=== PATIENT | male | born 1965 | race African-American/Black ===

== ENCOUNTER 2017-10-04 06:05 | Emergency (ER) | payer OTHER ==
[2017-10-04] MEDS ORDERED: KETOROLAC 30 MG/ML INJ ONE (06:20)
--- NOTE | 2017-10-04 07:49 | ER ---
Nurse's Notes [facility] Name: Alfonso Castañeda Age: 51 yrs Sex: Male : 1965 Arrival Date: 10/04/2017 Time: 06:06 Bed 18 Private MD: Diagnosis: Chest pain on breathing-rib pain Presentation: 10/04 06:07 Presenting complaint: Patient states: he was driving and sneezed really hard and then aa1 felt a pop in his L rib cage. Transition of care: patient was not received from another setting of care. Onset of symptoms was October 04, 2017. Care prior to arrival: None. 06:07 Method Of Arrival: EMS: [facility] aa1 06:07 Acuity: DAVID 4 aa1 Triage Assessment: 06:13 General: Appears in no apparent distress. comfortable, Behavior is calm, cooperative, aa1 appropriate for age. Pain: Complains of pain in diaphragm. Historical: - Allergies: 06:13 Biaxin; aa1 - Home Meds: 06:13 Prednisone Oral [Active]; aa1 - PMHx: 06:13 Cellulitis; retinal detachment; aa1 - PSHx: 06:13 eye sx; aa1 - Immunization history:: Flu vaccine is not up to date. - Social history:: Smoking status: Patient uses tobacco products, smokes one pack cigarettes per day. Screenin:01 Abuse screen: Denies threats or abuse. Nutritional screening: No deficits noted. ae1 Tuberculosis screening: No symptoms or risk factors identified. Fall Risk None identified. Assessment: 06:11 General: Appears uncomfortable, obese, Behavior is calm, cooperative, appropriate for cr4 age. Neuro: Denies weakness blurred vision dizziness, difficulty swallowing, numbness. Cardiovascular: Denies chest pain, lightheadedness, palpitations, shortness of breath, syncope, Capillary refill < 3 seconds Edema is 1+ to left midcalf, left ankle, left foot, right midcalf, right ankle and right foot Chest pain is denied. Respiratory: Reports pain with respiration since 30minutes. Breath sounds are clear bilaterally. Breath sounds are diminished bilaterally. Denies shortness of breath labored breathing. GI: No deficits noted. Patient currently denies nausea, pain, vomiting. : Denies burning with urination, incontinence, pain urinary frequency. EENT: Eyes hx of detached retina to right eye.. Derm: Skin is dry, skin pealing to pita hands. Musculoskeletal: Capillary refill < 3 seconds, Range of motion: intact in left arm. Tenderness present in left rib area. Reports pain in left rib cage are. 07:06 Reassessment: Patient appears in no apparent distress at this time. PO fluids provided. ae1 08:02 Reassessment: Patient appears in no apparent distress at this time. at bedside. ae1 Patient states feeling better. Vital Signs: 06:07 BP 135 / 98; Pulse 96; Resp 18; Temp 97.8; Pulse Ox 97% on R/A; Weight 140.61 kg; aa1 Height 6 ft. 7 in. (200.66 cm); Pain 8/10; 07:58 BP 141 / 86; Pulse 77; Resp 19; Pulse Ox 99% on R/A; ae1 06:07 Body Mass Index 34.92 (140.61 kg, 200.66 cm) aa1 ED Course: 06:06 Patient arrived in ED. kb 06:06 Esperanza Long FNP-C [facility]. kb 06:06 Alex Bonner MD is Attending Physician. kb 06:07 Arm band placed on right wrist. Patient placed in an exam room, on a stretcher. aa1 06:12 Triage completed. aa1 07:02 Paxton Fall, JOMAR is Primary Nurse. ae1 07:09 Awaiting for x-ray, Awaiting: X-ray tech called regarding pending CXR. cr4 07:31 X-ray completed. Patient tolerated procedure well. Patient moved to radiology via kw wheelchair. Patient moved back from radiology. 07:31 Chest Pa And Lat (2 Views) XRAY In Process Unspecified. EDMS 08:00 Bed in low position. Call light in reach. Side rails up X 1. Pulse ox on. NIBP on. ae1 08:01 No provider procedures requiring assistance completed. Patient did not have IV access ae1 during this emergency room visit. Administered Medications: 06:27 Drug: TORadol 60 mg Route: IM; Site: right deltoid; cr4 08:04 Follow up: Response: Pain is decreased ae1 Outcome: 07:49 Discharge ordered by . kb 08:01 Discharged to home ambulatory, with significant other. ae1 08:01 Condition: stable 08:01 Discharge instructions given to patient, significant other, Instructed on discharge instructions, follow up and referral plans. no drinking with medication, no driving heavy equipment, medication usage, Demonstrated understanding of instructions, follow-up care, medications, Prescriptions given X 1. 08:04 Patient left the ED. ae1 Signatures: Dispatcher [employer] EDHI Esperanza Long, EMERSON-C EMERSON-Malaika Hemphill RN RN aa1 Sophia Nieves RN RN cr4 Alem Garcia Andrea, RN RN ae1
--- NOTE | 2017-10-04 07:50 | EDPHYS ---
Physician Documentation [facility] Name: Alfonso Castañeda Age: 51 yrs Sex: Male : 1965 Arrival Date: 10/04/2017 Time: 06:06 Bed 18 Private MD: ED Physician Alex Bonner HPI: 10/04 06:07 This 51 yrs old Black Male presents to ER via Unassigned with complaints of rib pain. kb 06:07 The patient or guardian reports chest pain that is located primarily in the left, lower kb anterior ribs. Onset: just prior to arrival. The pain does not radiate. Associated signs and symptoms: The patient has no apparent associated signs or symptoms. The chest pain is described as sharp. Duration: The patient or guardian reports a single episode, that is still ongoing. Modifying factors: The symptoms are alleviated by nothing. the symptoms are aggravated by deep breath, movement, palpation of area. Severity of pain: At its worst the pain was moderate in the emergency department the pain is unchanged. The patient has not experienced similar symptoms in the past. The patient has not recently seen a physician. Pt states he sneezed really hard and felt a pop to left lower ribs. Tried to finish driving to work after, but the pain was worse when he tried to turn the wheel. . Historical: - Allergies: 06:13 Biaxin; aa1 - Home Meds: 06:13 Prednisone Oral [Active]; aa1 - PMHx: 06:13 Cellulitis; retinal detachment; aa1 - PSHx: 06:13 eye sx; aa1 - Immunization history:: Flu vaccine is not up to date. - Social history:: Smoking status: Patient uses tobacco products, smokes one pack cigarettes per day. ROS: 06:07 Constitutional: Negative for fever, chills, and weight loss, Respiratory: Negative for kb shortness of breath, cough, wheezing, and pleuritic chest pain, Abdomen/GI: Negative for abdominal pain, nausea, vomiting, diarrhea, and constipation, Back: Negative for injury and pain, MS/Extremity: Negative for injury and deformity, Skin: Negative for injury, rash, and discoloration, Neuro: Negative for headache, weakness, numbness, tingling, and seizure. 06:07 Cardiovascular: Positive for chest pain, with movement, of the left lower anterior ribs. Exam: 06:07 Constitutional: This is a well developed, well nourished patient who is awake, alert, kb and in no acute distress. Head/Face: Normocephalic, atraumatic. Cardiovascular: Regular rate and rhythm with a normal S1 and S2. No gallops, murmurs, or rubs. Normal PMI, no JVD. No pulse deficits. Respiratory: Lungs have equal breath sounds bilaterally, clear to auscultation and percussion. No rales, rhonchi or wheezes noted. No increased work of breathing, no retractions or nasal flaring. Abdomen/GI: Soft, non-tender, with normal bowel sounds. No distension or tympany. No guarding or rebound. No evidence of tenderness throughout. Skin: Warm, dry with normal turgor. Normal color with no rashes, no lesions, and no evidence of cellulitis. MS/ Extremity: Pulses equal, no cyanosis. Neurovascular intact. Full, normal range of motion. Neuro: Awake and alert, GCS 15, oriented to person, place, time, and situation. Cranial nerves II-XII grossly intact. Motor strength 5/5 in all extremities. Sensory grossly intact. Cerebellar exam normal. Normal gait. 06:07 Chest/axilla: Inspection: normal, Palpation: tenderness, that is moderate, of the left lower anterior ribs, that totally reproduces the patient's complaints. Vital Signs: 06:07 BP 135 / 98; Pulse 96; Resp 18; Temp 97.8; Pulse Ox 97% on R/A; Weight 140.61 kg; aa1 Height 6 ft. 7 in. (200.66 cm); Pain 8/10; 07:58 BP 141 / 86; Pulse 77; Resp 19; Pulse Ox 99% on R/A; ae1 06:07 Body Mass Index 34.92 (140.61 kg, 200.66 cm) aa1 MDM: 06:06 Patient medically screened. kb 06:07 Data reviewed: vital signs, nurses notes. Data interpreted: Pulse oximetry: on room air kb is 97 %. Interpretation: normal. 07:41 Counseling: I had a detailed discussion with the patient and/or guardian regarding: the kb historical points, exam findings, and any diagnostic results supporting the discharge/admit diagnosis, radiology results, the need for outpatient follow up, a family practitioner, to return to the emergency department if symptoms worsen or persist or if there are any questions or concerns that arise at home. 10/04 06:07 Order name: Chest Pa And Lat (2 Views) XRAY kb Administered Medications: 06:27 Drug: TORadol 60 mg Route: IM; Site: right deltoid; cr4 08:04 Follow up: Response: Pain is decreased ae1 Disposition: 15:13 Co-signature as Attending Physician, Alex Bonner MD I agree with the assessment and [facility] plan of care. Disposition: 10/04/17 07:49 Discharged to Home. Impression: Chest pain on breathing - rib pain. - Condition is Stable. - Discharge Instructions: Costochondritis, [id number], Chest Wall Pain, [id number]. - Prescriptions for Tylenol- Codeine #3 300-30 mg Oral Tablet - take 1 tablet by ORAL route every 6 hours As needed; 15 tablet. - Medication Reconciliation Form, Thank You Letter, Antibiotic Education, Prescription Opioid Use, Work release form form. - Follow up: Emergency Department; When: As needed; Reason: Worsening of condition. Follow up: Private Physician; When: 2 - 3 days; Reason: Recheck today's complaints, Continuance of care, Re-evaluation by your physician. Signatures: Dispatcher [employer] Esperanza Cormier, CLOTH NAPPING SUPERVISOR-C CLOTH NAPPING SUPERVISOR-Malaika Hemphill, RN RN aa1 Alex Bonner MD MD cha Ruiz, Claudia, RN RN cr4 Paxton Fall RN RN ae1
--- NOTE | 2017-10-04 09:42 | RAD REPORT ---
EXAM DESCRIPTION: RAD - Chest Pa And Lat (2 Views) - 10/04/2017 7:33 am CLINICAL HISTORY: Left-sided rib pain COMPARISON: None. TECHNIQUE: PA and lateral views of the chest were obtained. FINDINGS: The lungs are slightly underinflated. Mild prominence of the interstitial markings believe d to be baseline. No pulmonary contusion, mass, infiltrate or failure finding. Heart size is normal and central vasculature is within normal limits. No pleural effusion or pneumothorax seen. No acut e compression fracture identifiable. No acute rib injury seen. Rib detail is limited. No aortic abnor mality. IMPRESSION: No acute cardiopulmonary process. No acute bone findings seen. If there is need for further rib assessment, dedicated rib films could b e obtained.
== END 2017-10-04 08:04 | disposition home or self-care (01) ==
LOC: ER 06:05
DX: R07.1 Chest pain on breathing (principal)
CPT/HCPCS: 71046; 96372; 99284